=== PATIENT | male | born 1945 | race Caucasian/White ===

== ENCOUNTER 2017-09-24 10:54 | Day surgery (SDC) | payer MEDICARE, BC ==
[~2017-09-24] VITALS: Ht 170.2 cm; Wt 89.0 kg
[~2017-09-24 10:54] MED LIST: ALBU90OI INH; ALBU90OI6 INH; ALLO100; ALLO100 PO; ATOR20 PO; Balsalazide Di750 MG PO; HYDRA25 PO; LISI20 PO; MICROZIDE12.5 MG PO; Omeprazole20 M1 PO; Prednisone20 MG PO; QVAR7.3 G1 IH; WARF5 PO
[2017-09-24] MEDS ORDERED: Hydrochloroth12.5 MG (11:47)
[2017-09-24] MEDS ORDERED: METO100ER (11:48)
[2017-09-24] MEDS ORDERED: NEBI10 PO (11:48)
[2017-09-24] MEDS ORDERED: SPIR25 (11:48)
[2018-05-04] MEDS ORDERED: ELIQUIS5 MG PO (08:39)
[2018-07-19] MEDS ORDERED: Prednisone20 MG PO (10:20)
[2018-07-19] MEDS ORDERED: COMBIVENT RESPIM4 GM INH (10:20)
== END 2017-09-24 22:58 | disposition home or self-care (01) ==
LOC: MHTC 10:54
PROC: 5A2204Z Restoration of Cardiac Rhythm, Single (ICD-10-PCS; principal; 2017-09-24)
DX: I48.1 Persistent atrial fibrillation (principal); I10 Essential (primary) hypertension; E78.5 Hyperlipidemia, unspecified; J45.909 Unspecified asthma, uncomplicated; Z79.01 Long term (current) use of anticoagulants; Z79.899 Other long term (current) drug therapy; Z87.891 Personal history of nicotine dependence
CPT/HCPCS: 92960; 93005; 93010; 93312; 93325; J7120

== ENCOUNTER → 2018-09-10 | Outpatient (CLI) | payer MEDICARE, BC ==
[~2018-09-10] MED LIST changes: +COMBIVENT RESPIM4 GM INH; +ELIQUIS5 MG PO; +Hydrochloroth12.5 MG; +METO100ER; +NEBI10 PO; +SPIR25
== END | disposition home or self-care (01) ==
LOC: LAB SHORT 08:52 → LAB 08:52
DX: K92.1 Melena (principal); D64.9 Anemia, unspecified
CPT/HCPCS: 83993

== ENCOUNTER 2019-07-16 12:03 | Inpatient (IN) | payer MEDICARE, BC ==
[~2019-07-16] VITALS: Ht 170.2 cm; Wt 89.9 kg
[2019-07-16 13:07] LABS: BASOPHILS ABSOLUTE AUTO 0.03 K/mm3 (0.00-0.23); BASOPHILS PERCENT AUTO 0 % (0-2); EOSINOPHILS ABSOLUTE AUTO 0.09 K/mm3 (0.00-0.68); EOSINOPHILS PERCENT AUTO 1 % (0-6); Hematocrit 38.3 % (37.0-53.0); Hemoglobin 12.2 g/dL (13.5-17.5); IMMATURE GRAN ABSOLUTE AUTO 0.01 K/mm3 (0.00-0.10); IMMATURE GRAN PERCENT AUTO 0 % (0-1); LYMPHOCYTES ABSOLUTE AUTO 1.05 K/mm3 (0.84-5.20); LYMPHOCYTES PERCENT AUTO 14 % (21-46); MONOCYTES ABSOLUTE AUTO 0.97 K/mm3 (0.16-1.47); MONOCYTES PERCENT AUTO 13 % (4-13); Mean Corpuscular HGB 31.4 pg (26.0-34.0); Mean Corpuscular HGB Conc 31.9 g/dL (31.5-36.5); Mean Corpuscular Volume 99 fL (80-100); Mean Platelet Volume 10.8 fL (9.1-12.4); NEUTROPHILS ABSOLUTE AUTO 5.28 K/mm3 (1.96-9.15); NEUTROPHILS PERCENT AUTO 71 % (41-73); Platelet Count 246 K/mm3 (150-400); RDW Coefficient Variation 13.2 % (11.7-14.2); RDW Standard Deviation 46.7 fL (35.1-46.3); Red Blood Cell Count 3.89 M/mm3 (4.30-5.90); White Blood Cell Count 7.43 K/mm3 (4.00-11.30)
[2019-07-16 13:19] LABS: Alanine Aminotransfer (ALT/SGP 156 U/L (12-78); Albumin, Blood 3.6 g/dL (3.4-5.0); Albumin/Globulin Ratio 1.1 (0.8-1.8); Alk Phos 308 U/L (50-136); Anion Gap 7 mmol/L (6-16); Aspartate Aminotrans (AST/SGOT 172 U/L (12-37); Bilirubin, Total 1.1 mg/dL (0.1-1.0); Blood Urea Nitrogen 7 mg/dL (8-24); Bun/Creatinine Ratio 9.3 (12.0-20.0); CO2, Blood 27 mmol/L (21-32); Calcium, Blood 9.1 mg/dL (8.5-10.1); Chloride, Blood 103 mmol/L (98-108); Creatinine, Blood 0.75 mg/dL (0.60-1.20); Globulin, Blood 3.2 g/dL (2.2-4.0); Glomerular Filtration Rate >60 (60-); Glucose, Blood 81 mg/dL (70-99); Potassium, Blood 3.6 mmol/L (3.5-5.5); Sodium, Blood 137 mmol/L (136-145); Total Protein, Blood 6.8 g/dL (6.4-8.2); Troponin I <0.015 ng/mL (0.000-0.040)
[2019-07-16] MEDS ORDERED: ELIQUIS5 MG PO (14:33)
[2019-07-16] MEDS ORDERED: Ropinirole HCl1 MG PO (14:34)
[2019-07-16] MEDS ORDERED: COMBIVENT RESPIM4 GM INH (14:34)
[2019-07-16] MEDS ORDERED: COLAZAL PO (14:36)
[2019-07-16] MEDS ORDERED: MICROZIDE12.5 M1 PO (14:37)
[2019-07-16] MEDS ORDERED: BUDE6HFA INH (14:37)
[2019-07-16] MEDS ORDERED: MONT10T PO (14:37)
[2019-07-16] MEDS ORDERED: OMEPRAZOLE20 MG PO (14:45)
[2019-07-16] MEDS ORDERED: B Complex-Foli1 EACH PO (14:45)
[2019-07-16] MEDS ORDERED: ABAT250V (16:43)
[2019-07-16] MEDS ORDERED: POTA10T PO (16:43)
--- NOTE | 2019-07-16 17:31 | NUR ---
PT AOX4 AND COOPERATIVE OF CARE. PT IS INDEPENDENT IN ROOM. PT DENIES ANY CHEST PAIN AT THIS TIME. CALL LIGHT WITHIN REACH. WILL CONTINUE TO MONITOR.
[2019-07-17 00:45] LABS: BASOPHILS ABSOLUTE AUTO 0.04 K/mm3 (0.00-0.23); BASOPHILS PERCENT AUTO 1 % (0-2); EOSINOPHILS ABSOLUTE AUTO 0.14 K/mm3 (0.00-0.68); EOSINOPHILS PERCENT AUTO 2 % (0-6); Hematocrit 36.7 % (37.0-53.0); Hemoglobin 11.6 g/dL (13.5-17.5); IMMATURE GRAN ABSOLUTE AUTO 0.01 K/mm3 (0.00-0.10); IMMATURE GRAN PERCENT AUTO 0 % (0-1); LYMPHOCYTES PERCENT AUTO 19 % (21-46); MONOCYTES ABSOLUTE AUTO 0.82 K/mm3 (0.16-1.47); MONOCYTES PERCENT AUTO 11 % (4-13); Mean Corpuscular HGB 31.5 pg (26.0-34.0); Mean Corpuscular HGB Conc 31.6 g/dL (31.5-36.5); Mean Corpuscular Volume 100 fL (80-100); Mean Platelet Volume 10.5 fL (9.1-12.4); NEUTROPHILS ABSOLUTE AUTO 5.15 K/mm3 (1.96-9.15); NEUTROPHILS PERCENT AUTO 68 % (41-73); Platelet Count 233 K/mm3 (150-400); RDW Coefficient Variation 13.2 % (11.7-14.2); RDW Standard Deviation 48.8 fL (35.1-46.3); Red Blood Cell Count 3.68 M/mm3 (4.30-5.90); White Blood Cell Count 7.56 K/mm3 (4.00-11.30)
[2019-07-17 01:00] LABS: International Normalized Ratio 1.08; Prothrombin Time Results 11.4 Sec (9.7-11.5)
[2019-07-17 01:05] LABS: Alanine Aminotransfer (ALT/SGP 116 U/L (12-78); Albumin, Blood 3.2 g/dL (3.4-5.0); Alk Phos 261 U/L (50-136); Anion Gap 6 mmol/L (6-16); Aspartate Aminotrans (AST/SGOT 98 U/L (12-37); Blood Urea Nitrogen 10 mg/dL (8-24); Bun/Creatinine Ratio 12.1 (12.0-20.0); CO2, Blood 28 mmol/L (21-32); Calcium, Blood 8.8 mg/dL (8.5-10.1); Chloride, Blood 104 mmol/L (98-108); Creatinine, Blood 0.83 mg/dL (0.60-1.20); Globulin, Blood 3.1 g/dL (2.2-4.0); Glomerular Filtration Rate >60 (60-); Glucose, Blood 99 mg/dL (70-99); Potassium, Blood 3.6 mmol/L (3.5-5.5); Sodium, Blood 138 mmol/L (136-145); Total Protein, Blood 6.3 g/dL (6.4-8.2); Troponin I <0.015 ng/mL (0.000-0.040)
--- NOTE | 2019-07-17 05:25 | NUR ---
SHIFT SUMMARY: 73 Y/O MALE RESTED COMFORTABLY ALL SHIFT, DENIES CHEST PAIN, SOB OR NAUSEA, NPO AFTER MIDNIGHT FOR POSSIBLE SURGICAL PROCEDURE TODAY, HAPPY AND COOPERATIVE, ALERT AND ORIENTED X4, TELEMETRY REFLECTS NSR WITH HEART RATE 64 PER KENNY, RAILROAD BRAKE OPERATOR, BED LOW POSITION, CALL LIGHT AT SIDE.
--- NOTE | 2019-07-17 07:07 | NUR ---
07/16/19 2300 PTS WALLET, RING AND CAR KEYS LOCKED UP BY HOSPITAL SECURITY AND RECEIPT PLACED ON PATIENT'S CHART.
--- NOTE | 2019-07-17 17:40 | NUR ---
SHIFT SUMMARY- PT IS A/O, COOPERATIVE, AND PLESANT. PT'S BLOOD PRESSURE WAS ELEVATED THIS MORNING AND WAS MEDICATED PER MAR. PT TO BE PLACED ON NPO STATUS AFTER MIDNIGHT TO BE REEVALUATED BY SURGEON IN AM. PT WALKING FREQUENTLY THIS SHIFT. PT VISITED AND PICKED UP PERSONAL BELONGINGS THAT WERE IN THE SAFE IN THE SECURITY OFFICE. PT EATING AND DRINKING WELL. DENIES CHEST PAIN.
--- NOTE | 2019-07-18 01:08 | NUR ---
07/17/19 193 RESTING COMFORTABLY IN BED, DENIES PAIN OR NAUSEA. 07/18/19 0100 NO CHANGE IN ASSESSMENT, NPO FOR POSSIBLE SURGICAL INTERVENTION IN AM.
--- NOTE | 2019-07-18 04:36 | NUR ---
SHIFT SUMMARY: 73 Y/O MALE RESTED COMFORTABLY ALL SHIFT, NPO AFTER MIDNIGHT FOR POSSIBLE SURGICAL INTERVENTION TODAY, TELEMETRY REFLECTS NSR WITH HEART RATE 64, DENIES CHEST PAIN, NAUSEA OR DYSPNEA, ALERT AND ORIENTED X 4, HAPPY AND COPERATIVE, BED LOW POSITION WITH CALL LIGHT AT SIDE.
[2019-07-18 08:10] LABS: Alanine Aminotransfer (ALT/SGP 107 U/L (12-78); Albumin, Blood 3.4 g/dL (3.4-5.0); Albumin/Globulin Ratio 1.1 (0.8-1.8); Alk Phos 306 U/L (50-136); Anion Gap 6 mmol/L (6-16); Aspartate Aminotrans (AST/SGOT 84 U/L (12-37); Bilirubin, Total 0.8 mg/dL (0.1-1.0); Blood Urea Nitrogen 12 mg/dL (8-24); CO2, Blood 27 mmol/L (21-32); Calcium, Blood 9.2 mg/dL (8.5-10.1); Chloride, Blood 104 mmol/L (98-108); Globulin, Blood 3.2 g/dL (2.2-4.0); Glomerular Filtration Rate >60 (60-); Glucose, Blood 100 mg/dL (70-99); Potassium, Blood 3.9 mmol/L (3.5-5.5); Sodium, Blood 137 mmol/L (136-145); Total Protein, Blood 6.6 g/dL (6.4-8.2)
--- NOTE | 2019-07-18 09:56 | NUR ---
HE CALLED FOR HIS NURSE BECAUSE HE DIDN'T FEEL RIGHT. I FOUND HIM SITTING IN A CHAIR BESIDE THE BED. HE SAID HE WAS WALKING AROUND IN THE ROOM BUT BECAME DIZZY, DIDN'T FEEL RIGHT AND SAT DOWN. I OBSERVED LARGE JERKY MOVEMENTS. IT INVOLVED MOSTLY HIS R SIDE AND ARM. HE SAYS HE HAS HAD THE JERKY MOVEMENTS FOR A FEW MONTHS AND HAS A REFERRAL TO A NEUROLOGIST BUT HASN'T SEEN ONE YET. I HELPED HIM TRANSFER EASILY BACK TO THE BED WITH A WALKER IN FRONT OF HIM AND TOOK 2 SETS OF VS. 1ST SBP 202. 2ND SBP 180. THE JERKY MOVEMENTS CONTINUE. THEY ALSO INVOLVE THE LEGS AND HEAD. HE SAYS SOMETIMES THEY LAST AN HOUR. HE IS FULLY ALERT AND CONVERSATIONAL T/O THIS TIME.
--- NOTE | 2019-07-18 16:32 | NUR ---
SHIFT SUMMARY- PT A/O PLESANT AND COOPERATIVE. PT BLOOD PRESSURE HAS BEEN ELEVATED DURING THIS SHIFT, MEDICATED PER MAR WITH DECREASE IN BLOOD PRESSURE, WHICH DID NOT MAINTAIN. SPOKE WITH DR. MCADAMS SEVERAL TIMES THROGHOUT THIS SHIFT AND SHE ADJUSTED MEDICATIONS. PT HAD MUSCLE JERKING EPISODES TWICE DRUING THIS SHIFT. DR. MCADAMS WAS CONTACTED AND ABLE TO OBSERVE THE SECOND EPISODE. PT DENIES PAIN THIS SHIFT. PT TAKEN OFF NPO STATUS AFTER CONSULT WITH SURGEON.
--- NOTE | 2019-07-19 04:09 | NUR ---
SHIFT SUMMARY AOX4. AT 0230 BP ELEVATED TO 189/86, PT REPORTED MILD HEADACHE @THIS TIME. GAVE 0.1 MG CATAPRESS PER ORDERS & BP RECHECKED ROUGHLY 30MIN LATER, BP DROPPED TO 148/70. TELE IN PLACE, RUNNING NSR W/PAC'S @60. PT DENIES N/V, CHILLS, PALPATIONS, DYSPNEA OR PAIN. DOES HAVE CONSTANT JERKY, TWITCHING MUSCLE SPASMS INVOLVING THE RIGHT SIDE OF BODY. STATES HE HAS BEEN DEALING WITH THESE SPASMS FOR THE PAST FEW MONTHS. CALL LIGHT IN REACH.
[2019-07-19 04:46] LABS: BASOPHILS ABSOLUTE AUTO 0.04 K/mm3 (0.00-0.23); BASOPHILS PERCENT AUTO 1 % (0-2); EOSINOPHILS ABSOLUTE AUTO 0.19 K/mm3 (0.00-0.68); EOSINOPHILS PERCENT AUTO 3 % (0-6); Hematocrit 36.4 % (37.0-53.0); Hemoglobin 11.7 g/dL (13.5-17.5); IMMATURE GRAN ABSOLUTE AUTO 0.02 K/mm3 (0.00-0.10); IMMATURE GRAN PERCENT AUTO 0 % (0-1); LYMPHOCYTES ABSOLUTE AUTO 1.08 K/mm3 (0.84-5.20); LYMPHOCYTES PERCENT AUTO 18 % (21-46); MONOCYTES ABSOLUTE AUTO 0.72 K/mm3 (0.16-1.47); MONOCYTES PERCENT AUTO 12 % (4-13); Mean Corpuscular HGB 31.3 pg (26.0-34.0); Mean Corpuscular HGB Conc 32.1 g/dL (31.5-36.5); Mean Platelet Volume 10.9 fL (9.1-12.4); NEUTROPHILS ABSOLUTE AUTO 3.86 K/mm3 (1.96-9.15); NEUTROPHILS PERCENT AUTO 65 % (41-73); Platelet Count 250 K/mm3 (150-400); RDW Coefficient Variation 12.8 % (11.7-14.2); RDW Standard Deviation 45.8 fL (35.1-46.3); Red Blood Cell Count 3.74 M/mm3 (4.30-5.90); White Blood Cell Count 5.91 K/mm3 (4.00-11.30)
[2019-07-19 04:47] LABS: Mean Corpuscular Volume 97 fL (80-100)
[2019-07-19 05:11] LABS: Alanine Aminotransfer (ALT/SGP 81 U/L (12-78); Albumin, Blood 3.3 g/dL (3.4-5.0); Alk Phos 264 U/L (50-136); Anion Gap 9 mmol/L (6-16); Aspartate Aminotrans (AST/SGOT 55 U/L (12-37); Bilirubin, Total 0.7 mg/dL (0.1-1.0); Blood Urea Nitrogen 13 mg/dL (8-24); Bun/Creatinine Ratio 17.2 (12.0-20.0); CO2, Blood 26 mmol/L (21-32); Calcium, Blood 9.2 mg/dL (8.5-10.1); Chloride, Blood 102 mmol/L (98-108); Creatinine, Blood 0.75 mg/dL (0.60-1.20); Globulin, Blood 3.2 g/dL (2.2-4.0); Glomerular Filtration Rate >60 (60-); Glucose, Blood 94 mg/dL (70-99); Potassium, Blood 3.6 mmol/L (3.5-5.5); Sodium, Blood 137 mmol/L (136-145); Total Protein, Blood 6.5 g/dL (6.4-8.2)
--- NOTE | 2019-07-19 17:20 | NUR ---
SHIFT SUMMARY- PT CHANGED INTO A-FIB THIS AFTERNOON. BP'S HAVE BEEN UP AND DOWN, BP SEEMS TO RESPOND WELL TO THE PRN PO CLONIDINE. COREG WAS HELD THIS MORNING PER DR ROYAL D/T PT NSR BRADYCARDIA AT 56. PT HAD A MINOR C/O PAIN IN THE LEFT SHOULDER MEDICATED WITH TYLENOL AND SEEMED TO IMPROVE. PT STATED THAT HE FELL AT HOME AMD TRIED TO CATCH HIMSELF WITH THE LEFT ARM, HE BELIEVES THIS IS THE CAUSE OF HIS LEFT SHOULDER PAIN. LIDODERM PATCH ORDERED FR TOMORROW MORNING. PT CURRENTLY SITTING UP IN BED, CALL LIGHT IN REACH, PT PLANS TO HAVE A SHOWER THIS EVENING, AFTER DINNER. PT DECLINED EARLIER IN THE DAY BECAUSE THERE WAS A CHANCE HE COULD GO HOME. PT BP IS NOT YET STABLE. LAST SBP WAS 150'S.
--- NOTE | 2019-07-19 19:47 | NUR ---
PT REPORTS FEELING COOL & CLAMMY. UPON ASSESSMENT PT IS SLIGHLTY COOL & DIAPHORETIC ON FOREHEAD. VSS. TELE IS RUNNING AFIB W/HR IN 80'S. REPORTS "HEAVY" FEELING WHEN HE TAKES A BREATH IN BUT DOESN'T FEEL SOB. DENIES NAUSEA. REPORTS MILD PRESSURE ON L UPPER CHEST & A SLIGHT HEADACHE. NOTICED MUSCLE TWITCHING/SPASMS HAD STARTED TO OCCUR AGAIN. PT STATES HE HAS BEEN GETTING THIS COOL/CLAMMY FEELING FOR THE PAST FEW WEEKS, BUT IT "WASN'T BAD IT HAS BEEN." AFTER VS ASSESSED PT REPORTED HE NO LONGER FELT COOL/CLAMMY OR HAD ANY CHEST DISCOMFORT. I WILL CONTINUE TO MONITOR CLOSELY.
--- NOTE | 2019-07-19 20:04 | NUR ---
PT REPORTS FEELING CLAMMY/DIAPHORETIC AGAIN & STATES DULL L UPPER CHEST PRESSURE HAS GONE DOWN TO 1/10 AFTER RECIEVING BREATHING TX. WHEREAS IT WAS A 2-3/10 BEFORE. VSS. PT RUNNING A. FIB W/HR IN THE 60'S. AFTER ASSESSING PT HE REPORTS CLAMMINESS GOING AWAY. I INSTRUCTED PT TO USE CALL LIGHT IF CHEST PAIN/DISCOMFORT COMES BACK. CHARGE NURSE NIHARIKA Longoria NOTIFIED.
--- NOTE | 2019-07-20 07:17 | NUR ---
SHIFT SUMMARY NO ACUTE CHANGES REST OF SHIFT. VSS. AOX4. DENIES FURTHER PAIN, CLAMMINESS OR BEING DIAPHORETIC. DENIES N/V/D, CHILLS, OR DYSPNEA. STILL HAS OCCASIONAL INVOLUNTARY JERKY MOVEMENT W/RIGHT EXTREMITIES. TELE IN PLACE RUNNING A FIB W/HR 77. CALL LIGHT IN REACH.
[2019-07-20 07:30] LABS: Alanine Aminotransfer (ALT/SGP 73 U/L (12-78); Albumin, Blood 3.4 g/dL (3.4-5.0); Alk Phos 233 U/L (50-136); Anion Gap 8 mmol/L (6-16); Aspartate Aminotrans (AST/SGOT 48 U/L (12-37); Bilirubin, Total 0.8 mg/dL (0.1-1.0); Blood Urea Nitrogen 15 mg/dL (8-24); CO2, Blood 28 mmol/L (21-32); Calcium, Blood 9.3 mg/dL (8.5-10.1); Chloride, Blood 100 mmol/L (98-108); Creatinine, Blood 0.79 mg/dL (0.60-1.20); Globulin, Blood 3.3 g/dL (2.2-4.0); Glomerular Filtration Rate >60 (60-); Glucose, Blood 94 mg/dL (70-99); Potassium, Blood 3.8 mmol/L (3.5-5.5); Sodium, Blood 136 mmol/L (136-145); Total Protein, Blood 6.7 g/dL (6.4-8.2)
[2019-07-20] MEDS ORDERED: AMLO10 PO (08:33)
[2019-07-20] MEDS ORDERED: CLON.1 PO (08:35)
[2019-07-20] MEDS ORDERED: HYDCHL25 PO (08:36)
--- NOTE | 2019-07-20 09:22 | NUR ---
SUMMARY/DISCHARGE PT BEING DISCHARGED TO HOME, PT ALREADY HAS A DOCTOR APPOINTMENT TOMORROW, PT VERBALIZED UNDERSTANDING OF DISCHARGE INSTRUCTIONS, PT REPORTS HIS JUST BOUGHT A BLOOD PRESSURE CUFF, PT WAITING FOR HIS RIDE
== END 2019-07-20 09:44 | disposition home or self-care (01) | DRG 305 ==
LOC: ER 12:03 → MEDS 12:04 → ER 12:04 → MEDS 12:04
PROVIDERS: Nurse Practitioner Acute Care; Physician Assistant; Surgery; ADMIT Internal Medicine
DX: I16.0 Hypertensive urgency (principal); K50.90 Crohn's disease, unspecified, without complications; E78.5 Hyperlipidemia, unspecified; M10.9 Gout, unspecified; J45.20 Mild intermittent asthma, uncomplicated; I10 Essential (primary) hypertension; I35.0 Nonrheumatic aortic (valve) stenosis; J44.9 Chronic obstructive pulmonary disease, unspecified; K80.20 Calculus of gallbladder without cholecystitis without obstruction; G25.3 Myoclonus; I48.0 Paroxysmal atrial fibrillation; K44.9 Diaphragmatic hernia without obstruction or gangrene
CPT/HCPCS: 36415; 71046; 76705; 80053; 83690; 83735; 83880; 84484; 85025; 85610; 85651; 86140; 87040; 93005; 93010; 93306; 94640; 94760; 96374; 96375; 99285-25; A9270; G0378; J0360

== ENCOUNTER 2019-08-28 21:32 | Inpatient (IN) | payer MEDICARE, BC ==
[~2019-08-28] VITALS: Ht 170.2 cm; Wt 92.9 kg
[~2019-08-28 21:32] MED LIST changes: +ABAT250V; +AMLO10 PO; +B Complex-Foli1 EACH PO; +BUDE6HFA INH; +CLON.1 PO; +COLAZAL PO; +HYDCHL25 PO; +MICROZIDE12.5 M1 PO; +MONT10T PO; +OMEPRAZOLE20 MG PO; +POTA10T PO; +Ropinirole HCl1 MG PO
[2019-08-28 22:07] LABS: BASOPHILS ABSOLUTE AUTO 0.02 K/mm3 (0.00-0.23); BASOPHILS PERCENT AUTO 0 % (0-2); EOSINOPHILS PERCENT AUTO 0 % (0-6); Hematocrit 38.7 % (37.0-53.0); Hemoglobin 12.6 g/dL (13.5-17.5); IMMATURE GRAN ABSOLUTE AUTO 0.05 K/mm3 (0.00-0.10); IMMATURE GRAN PERCENT AUTO 1 % (0-1); LYMPHOCYTES ABSOLUTE AUTO 0.56 K/mm3 (0.84-5.20); LYMPHOCYTES PERCENT AUTO 7 % (21-46); MONOCYTES ABSOLUTE AUTO 0.29 K/mm3 (0.16-1.47); MONOCYTES PERCENT AUTO 4 % (4-13); Mean Corpuscular HGB Conc 32.6 g/dL (31.5-36.5); Mean Corpuscular Volume 92 fL (80-100); Mean Platelet Volume 10.3 fL (9.1-12.4); NEUTROPHILS ABSOLUTE AUTO 6.66 K/mm3 (1.96-9.15); NEUTROPHILS PERCENT AUTO 88 % (41-73); Platelet Count 271 K/mm3 (150-400); RDW Coefficient Variation 13.2 % (11.7-14.2); RDW Standard Deviation 44.1 fL (35.1-46.3); White Blood Cell Count 7.58 K/mm3 (4.00-11.30)
[2019-08-28] MEDS ORDERED: PRED20 (22:15)
[2019-08-28 22:24] LABS: Alanine Aminotransfer (ALT/SGP 71 U/L (12-78); Albumin, Blood 3.7 g/dL (3.4-5.0); Albumin/Globulin Ratio 1.1 (0.8-1.8); Alk Phos 122 U/L (50-136); Anion Gap 12 mmol/L (6-16); Aspartate Aminotrans (AST/SGOT 78 U/L (12-37); Bilirubin, Total 0.5 mg/dL (0.1-1.0); Blood Urea Nitrogen 13 mg/dL (8-24); Bun/Creatinine Ratio 18.7 (12.0-20.0); CO2, Blood 20 mmol/L (21-32); Calcium, Blood 8.4 mg/dL (8.5-10.1); Chloride, Blood 94 mmol/L (98-108); Creatinine, Blood 0.69 mg/dL (0.60-1.20); Globulin, Blood 3.5 g/dL (2.2-4.0); Glomerular Filtration Rate >60 (60-); Glucose, Blood 150 mg/dL (70-99); Sodium, Blood 126 mmol/L (136-145); Total Protein, Blood 7.2 g/dL (6.4-8.2); Troponin I <0.015 ng/mL (0.000-0.040)
--- NOTE | 2019-08-29 04:18 | NUR ---
73 YR OLD MALE ADMITTED TO FLOOR FROM THE ED WITH DX OF ASTHMA EXACERBATION. RESP PANEL OBTAINED AND SENT TO LAB. NOTE WHEEZING OF BILAT LUNGS. HAS HAD RESP TREATMENTS - SEE MAR AND RT DOCUMENTATION FOR DETAILS. CALL LIGHT IN REACH. WILL CONTINUE TO MONITOR.
[2019-08-29 04:56] LABS: Anion Gap 16 mmol/L (6-16); Blood Urea Nitrogen 15 mg/dL (8-24); Bun/Creatinine Ratio 22.7 (12.0-20.0); CO2, Blood 18 mmol/L (21-32); Calcium, Blood 8.4 mg/dL (8.5-10.1); Chloride, Blood 93 mmol/L (98-108); Creatinine, Blood 0.66 mg/dL (0.60-1.20); Glomerular Filtration Rate >60 (60-); Glucose, Blood 181 mg/dL (70-99); Potassium, Blood 3.4 mmol/L (3.5-5.5); Sodium, Blood 127 mmol/L (136-145)
[2019-08-29 05:53] LABS: Adenovirus Not Detected (NOT DETECT); Coronavirus 229E Not Detected (NOT DETECT); Coronavirus HKU1 Not Detected (NOT DETECT); Coronavirus NL63 Not Detected (NOT DETECT); Coronavirus OC43 Not Detected (NOT DETECT); Human Metapneumovirus Not Detected (NOT DETECT); Human Rhinovirus/Enterovirus Not Detected (NOT DETECT); Influenza A Not Detected (NOT DETECT); Influenza A/2009-H1 Not Detected (NOT DETECT); Influenza A/H1 Not Detected (NOT DETECT); Influenza A/H3 Not Detected (NOT DETECT); Influenza B Detected (NOT DETECT)
[2019-08-29 05:54] LABS: Bordetella pertussis Not Detected (NOT DETECT); Chlamydophila pneumoniae Not Detected (NOT DETECT); Mycoplasma pneumoniae Not Detected (NOT DETECT); Parainfluenza Virus 1 Not Detected (NOT DETECT); Parainfluenza Virus 2 Not Detected (NOT DETECT); Parainfluenza Virus 3 Not Detected (NOT DETECT); Parainfluenza Virus 4 Not Detected (NOT DETECT); Respiratory Syncytial Virus Not Detected (NOT DETECT)
--- NOTE | 2019-08-29 17:08 | NUR ---
SHIFT SUMMARY NO ACUTE CHANGES. PATIENT DENIES PAIN, NAUSEA, AND SHORTNESS OF BREATH. PATIENT UP SBA TO BATHROOM. PATIETN RECEIVING BREATHING TREATMENTS. PATIENT NAPPING OR UP IN CHAIR DURING SHIFT. CALL LIGHT IN REACH.
--- NOTE | 2019-08-30 05:11 | NUR ---
SHIFT SUMMARY: A/OX3. CONT WITH MOIST COUGH. COUGH IS GAURDED- PT STATES HE IS SUPPRESSING COUGH D/T PAIN WITH COUGH. ENCOURAGED TCDB USING PILLOW TO BRACE CHEST. INSP/EXP WHEEZING AUSCULTATED THROUGHOUT LUNGS. 02 SATS 92-94% ON RA. SOB WITH EXERTION.
[2019-08-30 05:45] LABS: Albumin, Blood 3.3 g/dL (3.4-5.0); Anion Gap 6 mmol/L (6-16); Blood Urea Nitrogen 15 mg/dL (8-24); Bun/Creatinine Ratio 23.5 (12.0-20.0); CO2, Blood 26 mmol/L (21-32); Calcium, Blood 8.6 mg/dL (8.5-10.1); Chloride, Blood 101 mmol/L (98-108); Creatinine, Blood 0.64 mg/dL (0.60-1.20); Glomerular Filtration Rate >60 (60-); Glucose, Blood 155 mg/dL (70-99); Phosphorus, Blood 2.3 mg/dL (2.5-4.9); Potassium, Blood 4.4 mmol/L (3.5-5.5); Sodium, Blood 133 mmol/L (136-145)
--- NOTE | 2019-08-30 17:37 | NUR ---
SHIFT SUMMARY DERRELL HAS DENIED PAIN, TELE DC'D, INDEPENDENT IN ROOM. KAYCEE HOSE ON FOR FEET SWELLING. TOOK PILLS ONE AT A TIME. VISITED. CALL LIGHT IN REACH, [facility]
--- NOTE | 2019-08-31 04:20 | NUR ---
SHIFT SUMMARY PATIENT ALERT AND ORIENTED ALL NIGHT. HE HAD NO COMPLAINT OF PAIN AND HAD MINIMAL NEEDS THIS SHIFT. HE REQUESTED ONE PRN NEBULIZER TREATMENT BECAUSE OF SHORTNESS OF BREATH WHICH THE RT ADMINISTERED AND IT WAS EFFECTIVE. PATIENT ABLE TO SLEEP MOST OF THE NIGHT. IV PATENT AND FLUSHED. BED IN LOWEST POSITION WITH WHEELS LOCKED. CALL LIGHT AND BELONGINGS WITHIN REACH. REPORT GIVEN TO ONCOMING RN.
--- NOTE | 2019-08-31 07:52 | NUR ---
THIS RN CAME ONTO SHIFT PATIENT HAD NURSES AT BEDSIDE. PATIENT HAD A FEVER. OFF GOING SHIFT HAD ICE IN ARMPITS, GIVEN TYLENOL. RT NOTIFIED. PLACED ON BIPAP. THIS RN CALLED DR. EMERY. SHE REQUESTED TRANSFER TO PCU. REPORT GIVEN TO SHERYL CROWLEY. THIS RN AND LÁZARO TO TRANSFER PATIENT TO ICU 16 WITH PCU STATUS.
--- NOTE | 2019-08-31 08:30 | NUR ---
TRANSFER TO ICU: REPORT RECEIVED FROM ANTOINETTE Tran RN. PT ARRIVED TO ICU-16 AT 0810. ON ARRIVAL, PT IS A&O, AMBULATES TO TX TO NEW BED. HE STS FEELING SOB AT THIS TIME BUT O2 SATS REMAIN STABLE ON 3L NC. LS ARE COARSE T/O & PT HAS WET COUGH BUT IS UNABLE TO EXPECTORATE. MONITOR SHOWS AFIB W/ HR 60-90s. BP STABLE. PT HAS NO GI/ COMPLAINTS, TOLERATES PO INTAKE WELL. DR EMERY NOTIFIED OF PT's TRANSFER TIME BY ANTOINETTE Tran RN. WILL CONTINUE TO MONTITOR & UPDATE NEEDED.
[2019-08-31 10:27] LABS: BASOPHILS ABSOLUTE AUTO 0.02 K/mm3 (0.00-0.23); BASOPHILS PERCENT AUTO 0 % (0-2); EOSINOPHILS PERCENT AUTO 0 % (0-6); Hematocrit 37.8 % (37.0-53.0); Hemoglobin 12.4 g/dL (13.5-17.5); IMMATURE GRAN PERCENT AUTO 1 % (0-1); LYMPHOCYTES ABSOLUTE AUTO 0.33 K/mm3 (0.84-5.20); LYMPHOCYTES PERCENT AUTO 1 % (21-46); MONOCYTES ABSOLUTE AUTO 1.52 K/mm3 (0.16-1.47); MONOCYTES PERCENT AUTO 6 % (4-13); Mean Corpuscular HGB 29.8 pg (26.0-34.0); Mean Corpuscular HGB Conc 32.8 g/dL (31.5-36.5); Mean Corpuscular Volume 91 fL (80-100); Mean Platelet Volume 10.7 fL (9.1-12.4); NEUTROPHILS ABSOLUTE AUTO 23.24 K/mm3 (1.96-9.15); NEUTROPHILS PERCENT AUTO 91 % (41-73); Platelet Count 316 K/mm3 (150-400); RDW Coefficient Variation 13.2 % (11.7-14.2); RDW Standard Deviation 43.7 fL (35.1-46.3); Red Blood Cell Count 4.16 M/mm3 (4.30-5.90); White Blood Cell Count 25.41 K/mm3 (4.00-11.30)
--- NOTE | 2019-08-31 10:40 | NUR ---
DR EMERY: PROVIDER AT BEDSIDE TO EVAL PT. ORDERS FOR LABWORK & IMAGING HAVE BEEN PLACED. WILL CONTINUE TO MONITOR & UPDATE NEEDED.
[2019-08-31 10:43] LABS: Albumin, Blood 3.2 g/dL (3.4-5.0); Anion Gap 9 mmol/L (6-16); Blood Urea Nitrogen 16 mg/dL (8-24); Bun/Creatinine Ratio 22.8 (12.0-20.0); CO2, Blood 27 mmol/L (21-32); Calcium, Blood 8.5 mg/dL (8.5-10.1); Chloride, Blood 99 mmol/L (98-108); Glomerular Filtration Rate >60 (60-); Glucose, Blood 189 mg/dL (70-99); Phosphorus, Blood 2.3 mg/dL (2.5-4.9); Potassium, Blood 3.5 mmol/L (3.5-5.5); Sodium, Blood 135 mmol/L (136-145)
--- NOTE | 2019-08-31 14:48 | NUR ---
PROVIDER UPDATE: CALL TO DR EMERY TO DISCUSS ELEVATED BNP & NEGATIVE PRELIMINARY RESULTS FOR VENOUS DUPLEX SCAN. SHE STS TO CONTINUE ABX & BIPAP ORDERED.
--- NOTE | 2019-08-31 18:24 | NUR ---
SHIFT SUMMARY: NO ACUTE CHANGES SINCE ASSUMING CARE THIS AM. PT REMAINS A&O, PLEASANT & COOPERATIVE. HE IS SITTING UP IN CHAIR FOR PO INTAKE THIS EVENING & USING FLUTTER VALVE INSTRUCTED. LS REMAIN COARSE T/O BUT SLIGHTLY IMPROVED, PT IS USING 3L NC OR BIPAP 12/5 W/ 3L O2 BLEED-IN WHEN FEELING INCREASED WORK OF BREATHING. COUGH IS MOIST BUT NONPRODUCTIVE, ENCOURAGED TO DEEP BREATHE & COUGH. MONITOR SHOWS AFIB W/ HR 60-90s. BP STABLE. PT VOIDS W/O DIFFICULTY, HAS HAD NO BM SINCE ADMIT. PIV TO RFA INFILTRATED THIS AFTERNOON W/ LARGE AREA OF INFILTRATE NOTED, HOT COMPRESS APPLIED AT THAT TIME & AREA NOW SOFT TO PALPATION, ALTHOUGH REMAINS SWOLLEN. WILL CONTINUE TO MONITOR & REPORT OFF TO ONCOMING RN.
--- NOTE | 2019-08-31 20:00 | NUR ---
PT UP IN CHAIR DURING SHIFT CHANGE, ASSISTED BACK TO BED. CONT W EXERTIONAL SOB. SATS MID 90'S ON 3LNC. DENIES OTHER DISCOMFORT. PLANS TO WEAR BIPAP AFTER HS MEDS.
[2019-09-01 03:49] LABS: BASOPHILS ABSOLUTE AUTO 0.04 K/mm3 (0.00-0.23); BASOPHILS PERCENT AUTO 0 % (0-2); EOSINOPHILS ABSOLUTE AUTO 0.02 K/mm3 (0.00-0.68); EOSINOPHILS PERCENT AUTO 0 % (0-6); Hematocrit 37.8 % (37.0-53.0); Hemoglobin 12.3 g/dL (13.5-17.5); IMMATURE GRAN ABSOLUTE AUTO 0.18 K/mm3 (0.00-0.10); IMMATURE GRAN PERCENT AUTO 1 % (0-1); LYMPHOCYTES ABSOLUTE AUTO 0.64 K/mm3 (0.84-5.20); LYMPHOCYTES PERCENT AUTO 2 % (21-46); MONOCYTES ABSOLUTE AUTO 0.46 K/mm3 (0.16-1.47); MONOCYTES PERCENT AUTO 2 % (4-13); Mean Corpuscular HGB 29.6 pg (26.0-34.0); Mean Corpuscular HGB Conc 32.5 g/dL (31.5-36.5); Mean Corpuscular Volume 91 fL (80-100); Mean Platelet Volume 10.4 fL (9.1-12.4); NEUTROPHILS ABSOLUTE AUTO 25.54 K/mm3 (1.96-9.15); NEUTROPHILS PERCENT AUTO 95 % (41-73); Platelet Count 279 K/mm3 (150-400); RDW Coefficient Variation 13.1 % (11.7-14.2); RDW Standard Deviation 44.1 fL (35.1-46.3); Red Blood Cell Count 4.15 M/mm3 (4.30-5.90); White Blood Cell Count 26.88 K/mm3 (4.00-11.30)
[2019-09-01 04:08] LABS: Albumin, Blood 3.1 g/dL (3.4-5.0); Anion Gap 8 mmol/L (6-16); Blood Urea Nitrogen 15 mg/dL (8-24); Bun/Creatinine Ratio 22.8 (12.0-20.0); CO2, Blood 29 mmol/L (21-32); Calcium, Blood 8.8 mg/dL (8.5-10.1); Chloride, Blood 98 mmol/L (98-108); Creatinine, Blood 0.66 mg/dL (0.60-1.20); Glomerular Filtration Rate >60 (60-); Glucose, Blood 149 mg/dL (70-99); Phosphorus, Blood 3.3 mg/dL (2.5-4.9); Potassium, Blood 3.7 mmol/L (3.5-5.5); Sodium, Blood 135 mmol/L (136-145)
--- NOTE | 2019-09-01 06:00 | NUR ---
PT STATES HE SLEPT WELL. WORE BIPAP THROUGH THE NIGHT. UP TO TOILET TO VOID, PT ALSO HAD BM THIS AM. CONT TO BE SOB WHEN AMB IN ROOM, BACK ON BIPAP & SATS MID 90'S. CONT TO BE AFIB W RATE 70'S.
--- NOTE | 2019-09-01 08:30 | NUR ---
INITIAL ASSESSMENT PATIENT ALERT AND ORIENTED X 4, AFEBRILE. PATIENT DENIES PAIN OR DISCOMFORT. PATIENT HAS FINE MUSCLE TREMORS NOTED ON R SIDE. PATIENT STATES THAT HE HAS HAD THESE TREMORS FOR A FEW YEARS NOW. PATIENT WEAK, SBA. PATIENT SATTING 90% AND GREATER ON 2 L NC. LUNGS DIMINISHED THROUGHOUT, COARSE IN LOWER LOBES. PATIENT STATES HE HAS OCCASIONAL COUGH THAT IS PRODUCING SMALL AMOUNT OF THICK, WHITE/ BARTON SPUTUM. PATIENT IN A.FIB, HR 70S TO 80S. SBP 150S TO 170S. KAYCEE HOSE IN PLACE. ABDOMEN SOFT, NONDISTENDED, NONTENDER, WITH NORMOACTIVE BS. PATIETN HAD BM TODAY. TOLERATING CARDIAC DIET WELL. WNL. R FA REDDENED AND SWOLLEN FROM IV INFILTRATING ON ANOTHER SHIFT. PATIENT STATES THAT IT IS TENDER TO PALPATION BUT THAT IT IS LOOKING BETTER THAN IT DID. 2+ EDEMA NOTED TO BLES. IV FLUSHED AND SALINE LOCKED. BED LOW, CALL LIGHT IN REACH. WILL CONTINUE TO MONITOR PATIENT FREQUENTLY THROUGHOUT SHIFT.
--- NOTE | 2019-09-01 12:43 | NUR ---
RUPERT IN TO SEE PATIENT. INFORMED OF PATIENT'S INCREASING WBC COUNT. INFORMED THAT PATIENT'S BLOOD PRESSURE HAS BEEN ON THE HIGHER SIDE BUT HAS NOT NEEDED PRN HYDRALAZINE YET THIS SHIFT. INFORMED THAT PATIENT HAS 2+ PITTING EDEMA IN LOWER EXTREMITIES AND THAT LUNG SOUNDS ARE COARSE AND DIMINISHED. INFORMED THAT PATIENT SATTING 90% AND GREATER ON 1-2 L NC TODAY. WOULD LIKE TO KEEP PATIENT PCU STATUS AT THIS TIME. NO ORDERS RECEIVED.
--- NOTE | 2019-09-01 12:47 | NUR ---
PATIENT RESTING QUIETLY IN BED. PATIENT HAS NO COMPLAINTS OF PAIN OR DISCOMFORT. PATIENT AFEBRILE. VSS. PATIENT DECREASED TO 1 L NC AND REMAINS SATTING 90% AND GREATER. NO OTHER ACUTE CHANGES TO NOTE ON AT THIS TIME. WILL CONTINUE TO MONITOR.
--- NOTE | 2019-09-01 16:30 | NUR ---
SHIFT SUMMARY PATIENT REMAINED ALERT AND ORIENTED X 4, AFEBRILE. PATIENT DECREASED FROM 3 L NC AT BEGINNING OF SHIFT TO RA AT END OF SHIFT. PATIENT REMAINS SATTING 90% AND GREATER. LUNGS REMAINED DIM AND COARSE. PATIENT CONTINUED TO HAVE OCCASIONAL COUGH WITH SMALL AMOUNTS OF THICK, WHITE/ BARTON SPUTUM. PATIENT REMAINED IN A. FIB, HR 70S TO 90S. SBP 140S TO 170S. KAYCEE HOSE REMAINED ON. 2+ PITTING REMAINED IN BLES. GI REMAINED WNL. PATIENT HAD ADEQUATE APPETITE. PATIENT HAD SEVERAL FORMED BMS THIS SHIFT. WNL. NO CHANGE IN SKIN. PATIENT REMAINED REPOSITIONING SELF. SBA BECAUSE OF LINES AND CORDS. PT/OT ORDERED ON PATIENT. IVS SALINE LOCKED. PATIENT RECEIVED LEVAQUIN AND VANCO THIS SHIFT. PATIENT HAS NO COMPLAINTS AT THIS TIME. BED LOW, CALL LIGHT IN REACH. PATIENT WILL BE TRANSFERRING TO PCU, ROOM 4. REPORT HAS BEEN GIVEN TO ASSUMING NURSE, KIMBERLEE.
--- NOTE | 2019-09-01 16:45 | NUR ---
PATIENT SUCCESSFULLY TRANSFERRED TO PCU, ROOM 04. PATIENT STATED HE WOULD CALL AND INFORM HIS OF THE ROOM CHANGE.
--- NOTE | 2019-09-01 17:08 | NUR ---
SHIFT NOTE PT ARRIVES FROM ICU, DENIES CP OR SOB AT THIS TIME. LS ARE DIMENISHED IN ALL LOBES. NO COUGH NOTED. HTN NOTED BUT IS UNCHANGED FROM ICU BP. PT WAS MEDCIATED WITH COREG AND SOLUMEDROL PRIOR TO LEAVING ICU. 2+ BILAT PITTING EDEMA NOTED TO LEGS.
[2019-09-01 23:37] LABS: Vancomycin, Trough 10.2 ug/mL (5.0-10.0)
--- NOTE | 2019-09-02 00:36 | NUR ---
PT REQUEST FOR UDN. RR 22 BIOX 93% ON RA. AUDIBLE COARSE BREATH SOUNDS. ABLE TO COUGH WITHOUT PRODUTION OF SPUTUM. RT CALLED, UDN STARTED. PATIENT FEELS RELIEF OF SYMPTOMS. WILL CONTINUE TO MONITOR.
[2019-09-02 03:29] LABS: BASOPHILS ABSOLUTE AUTO 0.01 K/mm3 (0.00-0.23); BASOPHILS PERCENT AUTO 0 % (0-2); EOSINOPHILS ABSOLUTE AUTO 0.01 K/mm3 (0.00-0.68); EOSINOPHILS PERCENT AUTO 0 % (0-6); Hematocrit 37.6 % (37.0-53.0); Hemoglobin 12.3 g/dL (13.5-17.5); IMMATURE GRAN ABSOLUTE AUTO 0.19 K/mm3 (0.00-0.10); IMMATURE GRAN PERCENT AUTO 1 % (0-1); LYMPHOCYTES ABSOLUTE AUTO 0.77 K/mm3 (0.84-5.20); LYMPHOCYTES PERCENT AUTO 4 % (21-46); MONOCYTES ABSOLUTE AUTO 0.51 K/mm3 (0.16-1.47); MONOCYTES PERCENT AUTO 3 % (4-13); Mean Corpuscular HGB 29.7 pg (26.0-34.0); Mean Corpuscular HGB Conc 32.7 g/dL (31.5-36.5); Mean Corpuscular Volume 91 fL (80-100); Mean Platelet Volume 10.5 fL (9.1-12.4); NEUTROPHILS ABSOLUTE AUTO 16.26 K/mm3 (1.96-9.15); NEUTROPHILS PERCENT AUTO 92 % (41-73); Platelet Count 264 K/mm3 (150-400); RDW Coefficient Variation 12.9 % (11.7-14.2); RDW Standard Deviation 42.6 fL (35.1-46.3); Red Blood Cell Count 4.14 M/mm3 (4.30-5.90); White Blood Cell Count 17.75 K/mm3 (4.00-11.30)
[2019-09-02 03:49] LABS: Albumin, Blood 2.9 g/dL (3.4-5.0); Anion Gap 6 mmol/L (6-16); Blood Urea Nitrogen 16 mg/dL (8-24); Bun/Creatinine Ratio 25.2 (12.0-20.0); CO2, Blood 30 mmol/L (21-32); Calcium, Blood 8.7 mg/dL (8.5-10.1); Chloride, Blood 98 mmol/L (98-108); Creatinine, Blood 0.64 mg/dL (0.60-1.20); Glomerular Filtration Rate >60 (60-); Glucose, Blood 157 mg/dL (70-99); Phosphorus, Blood 2.9 mg/dL (2.5-4.9); Potassium, Blood 3.4 mmol/L (3.5-5.5); Sodium, Blood 134 mmol/L (136-145)
--- NOTE | 2019-09-02 05:00 | NUR ---
PATIENT WAKES WITH VERBAL STIMULI. HE HAS NOT HAD ANY FURTHER NEED FOR PRN UND'S FOR THE REMAINDER OF THE SHIFT. HE IS USING HIS FLUTTER VALVE WHILE HE IS AWAKE AND DURING CARE. PATIENT HAS NOT USED THE CALL LIGHT THIS SHIFT. IT IS WITHIN REACH. NO ACUTE CHANGES.
--- NOTE | 2019-09-02 18:39 | NUR ---
SHIFT NOTE PT HAS BEEN CHANGED TO MEDICAL STATUS WITHOUT TELE. PT A/O X4, DENIES SOB OR CP. PT TALKING IN FULL SENTENCES. PT HAS BEEN INDEPENDANT IN ROOM T/O THE DAY. PT HAS BEEN UP TO BEDSIDE CHAIR MOST OF THE DAY. VSS T/O THE SHIFT
--- NOTE | 2019-09-03 05:46 | NUR ---
SHIFT SUMMARY PT MEDICAL NO TELE STATUS. A&O X4. VSS. INDEPENDENT IN ROOM. PT REPORS FEELING BETTER, DENIES FURTHER FLU-LIKE SYMPTOMS. SPO2 > 92% ON RA. BLE EDEMA NOTED. WILL CONTINUE TO MONITOR AND PROVIDE CARE UNTIL REPORT OFF TO DAY SHIFT RN.
[2019-09-03 07:04] LABS: BASOPHILS ABSOLUTE AUTO 0.04 K/mm3 (0.00-0.23); BASOPHILS PERCENT AUTO 0 % (0-2); EOSINOPHILS ABSOLUTE AUTO 0.03 K/mm3 (0.00-0.68); EOSINOPHILS PERCENT AUTO 0 % (0-6); Hematocrit 40.8 % (37.0-53.0); Hemoglobin 13.6 g/dL (13.5-17.5); IMMATURE GRAN ABSOLUTE AUTO 0.33 K/mm3 (0.00-0.10); IMMATURE GRAN PERCENT AUTO 2 % (0-1); LYMPHOCYTES ABSOLUTE AUTO 0.99 K/mm3 (0.84-5.20); LYMPHOCYTES PERCENT AUTO 7 % (21-46); MONOCYTES ABSOLUTE AUTO 0.76 K/mm3 (0.16-1.47); MONOCYTES PERCENT AUTO 6 % (4-13); Mean Corpuscular HGB 29.9 pg (26.0-34.0); Mean Corpuscular HGB Conc 33.3 g/dL (31.5-36.5); Mean Corpuscular Volume 90 fL (80-100); Mean Platelet Volume 10.3 fL (9.1-12.4); NEUTROPHILS ABSOLUTE AUTO 11.45 K/mm3 (1.96-9.15); NEUTROPHILS PERCENT AUTO 84 % (41-73); Platelet Count 289 K/mm3 (150-400); RDW Coefficient Variation 12.9 % (11.7-14.2); RDW Standard Deviation 42.3 fL (35.1-46.3); Red Blood Cell Count 4.55 M/mm3 (4.30-5.90)
[2019-09-03 07:26] LABS: Albumin, Blood 3.2 g/dL (3.4-5.0); Anion Gap 8 mmol/L (6-16); Blood Urea Nitrogen 17 mg/dL (8-24); Bun/Creatinine Ratio 28.1 (12.0-20.0); CO2, Blood 30 mmol/L (21-32); Calcium, Blood 8.7 mg/dL (8.5-10.1); Chloride, Blood 99 mmol/L (98-108); Creatinine, Blood 0.61 mg/dL (0.60-1.20); Glomerular Filtration Rate >60 (60-); Glucose, Blood 146 mg/dL (70-99); Potassium, Blood 3.7 mmol/L (3.5-5.5); Sodium, Blood 137 mmol/L (136-145); Vancomycin, Trough 16.2 ug/mL (5.0-10.0)
--- NOTE | 2019-09-03 15:15 | NUR ---
TRANSFER OF CARE REPORT CALLED TO BANDAR PEARL ON MEDICAL. PT TO TRANSFER TO ROOM 310. ALL BELONGINGS GATHERED AND TRANSPORTED WITH PT. PT ESCORTED UPSTAIRS BY ALEM ALVAREZ.
--- NOTE | 2019-09-03 15:41 | NUR ---
Assumed Care Pt transferred from PCU 4 to MED 310 via w/c. Pt independent, settled to room, call light near, and bed in lowest position. Denies needs at this time. Will continue to monitor.
--- NOTE | 2019-09-04 04:11 | NUR ---
SHIFT SUMMARY: 73 Y/O MALE RESTED COMFORTABLY ENTIRE SHIFT WITH NO C/O PAIN OR NAUSEA; LUNG SOUNDS ARE DIMINISHED THROUGHOUT, NO COUGH NOTED; ALERT AND ORIENTED X 4; EAGER TO RETURN HOME POSSIBLY TODAY; BED LOW POSITION WITH CALL LIGHT AT SIDE.
[2019-09-04 05:45] LABS: BASOPHILS ABSOLUTE AUTO 0.02 K/mm3 (0.00-0.23); BASOPHILS PERCENT AUTO 0 % (0-2); EOSINOPHILS PERCENT AUTO 0 % (0-6); Hematocrit 40.9 % (37.0-53.0); Hemoglobin 13.6 g/dL (13.5-17.5); IMMATURE GRAN ABSOLUTE AUTO 0.18 K/mm3 (0.00-0.10); IMMATURE GRAN PERCENT AUTO 2 % (0-1); LYMPHOCYTES ABSOLUTE AUTO 0.73 K/mm3 (0.84-5.20); LYMPHOCYTES PERCENT AUTO 8 % (21-46); MONOCYTES ABSOLUTE AUTO 0.46 K/mm3 (0.16-1.47); MONOCYTES PERCENT AUTO 5 % (4-13); Mean Corpuscular HGB 29.6 pg (26.0-34.0); Mean Corpuscular HGB Conc 33.3 g/dL (31.5-36.5); Mean Corpuscular Volume 89 fL (80-100); Mean Platelet Volume 10.6 fL (9.1-12.4); NEUTROPHILS ABSOLUTE AUTO 7.66 K/mm3 (1.96-9.15); NEUTROPHILS PERCENT AUTO 85 % (41-73); Platelet Count 252 K/mm3 (150-400); RDW Coefficient Variation 12.7 % (11.7-14.2); RDW Standard Deviation 41.4 fL (35.1-46.3); Red Blood Cell Count 4.59 M/mm3 (4.30-5.90); White Blood Cell Count 9.05 K/mm3 (4.00-11.30)
[2019-09-04 06:14] LABS: Albumin, Blood 3.1 g/dL (3.4-5.0); Anion Gap 8 mmol/L (6-16); Blood Urea Nitrogen 20 mg/dL (8-24); Bun/Creatinine Ratio 33.5 (12.0-20.0); CO2, Blood 28 mmol/L (21-32); Calcium, Blood 8.8 mg/dL (8.5-10.1); Chloride, Blood 98 mmol/L (98-108); Glomerular Filtration Rate >60 (60-); Glucose, Blood 159 mg/dL (70-99); Phosphorus, Blood 4.1 mg/dL (2.5-4.9); Potassium, Blood 3.7 mmol/L (3.5-5.5); Sodium, Blood 134 mmol/L (136-145)
[2019-09-04] MEDS ORDERED: FOLIC ACID PO (12:09)
[2019-09-04] MEDS ORDERED: [UNRECOGNIZED DRUG - OTHER] PO (12:09)
[2019-09-04] MEDS ORDERED: CEPACOL SORE T1 EACH MM (12:10)
[2019-09-04] MEDS ORDERED: CARV6.25 PO (12:11)
[2019-09-04] MEDS ORDERED: Culturelle1 CAP PO (12:12)
[2019-09-04] MEDS ORDERED: LEVO750 PO (12:13)
[2019-09-04] MEDS ORDERED: Vsl#3 Capsule1 EACH PO (12:13)
[2019-09-04] MEDS ORDERED: Prednisone10 MG PO (12:16)
--- NOTE | 2019-09-04 13:30 | NUR ---
PT DISCHARGED AT 1325 WITH ALL PERSONAL BELONGINGS. PT REPORTS BREATHING MUCH BETTER TODAY AND FELT LIKE HE COULD GO HOME. ALL PAPERS REVIEWED AND EDCATIONAL MATERIALS SENT WITH PT. IV REMOVED AND INTACT. MEDICATION FAXED TO [facility]. NO DISTRESS NOTED.
== END 2019-09-04 13:26 | disposition home or self-care (01) | DRG 871 ==
LOC: ER 21:32 → MEDS 21:33 → ICUW 08-30 15:46 → MEDS 08-30 15:50 → ICUW 08-31 08:04 → PCU 09-01 16:43 → MEDS 09-03 15:31
PROVIDERS: Family Medicine; Pharmacist; Physician Assistant; ADMIT Internal Medicine
PROC: 5A09357 Assistance with Respiratory Ventilation, Less than 24 Consecutive Hours, Continuous Positive Airway Pressure (ICD-10-PCS; principal; 2019-08-31)
DX: A41.89 Other specified sepsis (principal); J18.9 Pneumonia, unspecified organism; J96.01 Acute respiratory failure with hypoxia; I50.33 Acute on chronic diastolic (congestive) heart failure; J45.901 Unspecified asthma with (acute) exacerbation; E87.1 Hypo-osmolality and hyponatremia; J10.1 Influenza due to other identified influenza virus with other respiratory manifestations; I48.0 Paroxysmal atrial fibrillation; I35.0 Nonrheumatic aortic (valve) stenosis; K21.9 Gastro-esophageal reflux disease without esophagitis; R65.20 Severe sepsis without septic shock; E87.6 Hypokalemia; I11.0 Hypertensive heart disease with heart failure; M10.9 Gout, unspecified; D63.8 Anemia in other chronic diseases classified elsewhere; E83.39 Other disorders of phosphorus metabolism; Z87.891 Personal history of nicotine dependence
CPT/HCPCS: 0099U; 36415; 71045; 71046; 80048; 80053; 80069; 80202; 83605; 83880; 84484; 85025; 87040; 93005; 93010; 93971; 94640; 94644; 94660; 94760; 94762; 96365; 96375; 97116; 97162; 97166; 97530; 97535; 99285-25; A9270; J0360; J1940; J1956; J2405; J2930; J3370; J3475; J7030; J7050

== ENCOUNTER 2019-12-06 20:20 | Emergency (ER) | payer MEDICARE, BC ==
[~2019-12-06] VITALS: Ht 170.2 cm; Wt 86.2 kg
[~2019-12-06 20:20] MED LIST changes: +CARV6.25 PO; +CEPACOL SORE T1 EACH MM; +Culturelle1 CAP PO; +FOLIC ACID PO; +LEVO750 PO; +PRED20; +Prednisone10 MG PO; +Vsl#3 Capsule1 EACH PO; +[UNRECOGNIZED DRUG - OTHER] PO
[2019-12-06 21:29] LABS: BASOPHILS ABSOLUTE AUTO 0.06 K/mm3 (0.00-0.23); BASOPHILS PERCENT AUTO 1 % (0-2); EOSINOPHILS ABSOLUTE AUTO 0.06 K/mm3 (0.00-0.68); EOSINOPHILS PERCENT AUTO 1 % (0-6); Hematocrit 37.2 % (37.0-53.0); Hemoglobin 12.5 g/dL (13.5-17.5); IMMATURE GRAN ABSOLUTE AUTO 0.03 K/mm3 (0.00-0.10); IMMATURE GRAN PERCENT AUTO 0 % (0-1); LYMPHOCYTES ABSOLUTE AUTO 1.82 K/mm3 (0.84-5.20); LYMPHOCYTES PERCENT AUTO 25 % (21-46); MONOCYTES ABSOLUTE AUTO 0.73 K/mm3 (0.16-1.47); MONOCYTES PERCENT AUTO 10 % (4-13); Mean Corpuscular HGB 30.9 pg (26.0-34.0); Mean Corpuscular HGB Conc 33.6 g/dL (31.5-36.5); Mean Corpuscular Volume 92 fL (80-100); Mean Platelet Volume 10.1 fL (9.1-12.4); NEUTROPHILS ABSOLUTE AUTO 4.72 K/mm3 (1.96-9.15); NEUTROPHILS PERCENT AUTO 64 % (41-73); Platelet Count 279 K/mm3 (150-400); RDW Coefficient Variation 13.2 % (11.7-14.2); RDW Standard Deviation 45.5 fL (35.1-46.3); Red Blood Cell Count 4.04 M/mm3 (4.30-5.90); White Blood Cell Count 7.42 K/mm3 (4.00-11.30)
[2019-12-06 21:49] LABS: Alanine Aminotransfer (ALT/SGP 53 U/L (12-78); Albumin/Globulin Ratio 1.4 (0.8-1.8); Alk Phos 70 U/L (50-136); Anion Gap 9 mmol/L (6-16); Aspartate Aminotrans (AST/SGOT 55 U/L (12-37); Bilirubin, Total 0.3 mg/dL (0.1-1.0); Blood Urea Nitrogen 11 mg/dL (8-24); CO2, Blood 25 mmol/L (21-32); Calcium, Blood 8.3 mg/dL (8.5-10.1); Chloride, Blood 96 mmol/L (98-108); Creatinine, Blood 0.65 mg/dL (0.60-1.20); Globulin, Blood 2.9 g/dL (2.2-4.0); Glomerular Filtration Rate >60 (60-); Glucose, Blood 100 mg/dL (70-99); Potassium, Blood 3.8 mmol/L (3.5-5.5); Sodium, Blood 130 mmol/L (136-145); Total Protein, Blood 6.9 g/dL (6.4-8.2); Troponin I <0.015 ng/mL (0.000-0.040)
[2019-12-06] MEDS ORDERED: Keflex500 MG PO (22:18)
== END 2019-12-06 23:05 | disposition home or self-care (01) ==
LOC: ER 20:20
PROVIDERS: Physician Assistant
DX: S06.9X9A Unspecified intracranial injury with loss of consciousness of unspecified duration, initial encounter (principal); S01.21XA Laceration without foreign body of nose, initial encounter; S90.411A Abrasion, right great toe, initial encounter; I48.91 Unspecified atrial fibrillation; J45.909 Unspecified asthma, uncomplicated; M10.9 Gout, unspecified; I10 Essential (primary) hypertension; Z88.1 Allergy status to other antibiotic agents; Z88.8 Allergy status to other drugs, medicaments and biological substances; Z79.899 Other long term (current) drug therapy; W19.XXXA Unspecified fall, initial encounter
CPT/HCPCS: 70450; 71046; 80053; 84484; 85025; 90471; 90714; 93005; 93010; 99285-25; A9270-GY

== ENCOUNTER 2020-05-15 09:02 | Inpatient (IN) | payer MEDICARE, BC ==
[~2020-05-15] VITALS: Ht 170.2 cm; Wt 86.3 kg
[~2020-05-15 09:02] MED LIST changes: +Keflex500 MG PO
[2020-05-15] MEDS ORDERED: COMBIVENT RESPIM4 G1 INH ×2 (11:40)
[2020-05-15] MEDS ORDERED: LEVETIRACETAM500 M3 PO ×2 (11:40)
[2020-05-15] MEDS ORDERED: SYMBICORT 16010.2 GM INH ×2 (11:43)
[2020-05-15] MEDS ORDERED: AMLODIPINE BESY10 MG PO ×2 (11:43)
[2020-05-15] MEDS ORDERED: Bystolic20 MG PO ×2 (11:43)
--- NOTE | 2020-05-16 04:19 | NUR ---
SHIFT SUMMARY PT RESTING WELL THIS AM. AAOX4. NPO. PT REPORTING INTERMITTENT SHARP ABD PAIN DISCOMFORT CONTROLLED WITH 0.5MG IV DILAUDID Q3-4H. NO NAUSEA/EMESIS THIS SHIFT. PT UP TO BATHROOM WITH LARGE AMOUNTS OF FLATUS, NO BM. PT RESTING AT THIS TIME WITH CALL LIGHT IN REACH.
[2020-05-16 04:43] LABS: BASOPHILS ABSOLUTE AUTO 0.05 K/mm3 (0.00-0.23); BASOPHILS PERCENT AUTO 0 % (0-2); EOSINOPHILS ABSOLUTE AUTO 0.02 K/mm3 (0.00-0.68); EOSINOPHILS PERCENT AUTO 0 % (0-6); Hematocrit 33.8 % (37.0-53.0); Hemoglobin 11.1 g/dL (13.5-17.5); IMMATURE GRAN ABSOLUTE AUTO 0.11 K/mm3 (0.00-0.10); IMMATURE GRAN PERCENT AUTO 1 % (0-1); LYMPHOCYTES ABSOLUTE AUTO 1.01 K/mm3 (0.84-5.20); LYMPHOCYTES PERCENT AUTO 6 % (21-46); MONOCYTES ABSOLUTE AUTO 1.76 K/mm3 (0.16-1.47); MONOCYTES PERCENT AUTO 10 % (4-13); Mean Corpuscular HGB 31.4 pg (26.0-34.0); Mean Corpuscular HGB Conc 32.8 g/dL (31.5-36.5); Mean Corpuscular Volume 96 fL (80-100); Mean Platelet Volume 10.2 fL (9.1-12.4); NEUTROPHILS PERCENT AUTO 83 % (41-73); Platelet Count 249 K/mm3 (150-400); RDW Standard Deviation 45.7 fL (35.1-46.3); Red Blood Cell Count 3.53 M/mm3 (4.30-5.90); White Blood Cell Count 17.75 K/mm3 (4.00-11.30)
[2020-05-16 05:00] LABS: Alanine Aminotransfer (ALT/SGP 16 U/L (12-78); Albumin, Blood 3.1 g/dL (3.4-5.0); Alk Phos 60 U/L (50-136); Anion Gap 8 mmol/L (6-16); Aspartate Aminotrans (AST/SGOT 14 U/L (12-37); Bilirubin, Total 1.3 mg/dL (0.1-1.0); Blood Urea Nitrogen 12 mg/dL (8-24); Bun/Creatinine Ratio 12.1 (12.0-20.0); CO2, Blood 27 mmol/L (21-32); Calcium, Blood 8.6 mg/dL (8.5-10.1); Chloride, Blood 98 mmol/L (98-108); Creatinine, Blood 0.99 mg/dL (0.60-1.20); Globulin, Blood 3.1 g/dL (2.2-4.0); Glomerular Filtration Rate >60 (60-); Glucose, Blood 100 mg/dL (70-99); Magnesium, Blood 1.5 mg/dL (1.6-2.4); Potassium, Blood 3.7 mmol/L (3.5-5.5); Sodium, Blood 133 mmol/L (136-145); Total Protein, Blood 6.2 g/dL (6.4-8.2)
--- NOTE | 2020-05-16 16:02 | NUR ---
SHIFT SUMMARY PT HAS DONE WELL TODAY W/ SIPS & CHIPS. AMBULATED HALLWAY ONCE. PASSING MINIMAL GAS. ABD MORE DISTENDED THAN YEST. IVF & ANTIBIOTICS SCHEDULED. PLEASANT.
--- NOTE | 2020-05-17 02:43 | NUR ---
PT REPORTS FEELING FREEZING COLD AND IS FOUND SHIVERING IN BED. NORMAL TEMP OF 98.6. EXPIRATORY WHEEZING NOTED IN ALL LOBES. CALL PLACED TO RESPIRATORY THERAPIST FOR BREATHING TX. PT ALSO REPORTS ZOFRAN NOT EFFECTIVE FOR NAUSEA. CALL PLACED TO HOSPITALIST TO OBTAIN NEW ORDERS FOR NAUSEA.
--- NOTE | 2020-05-17 02:49 | NUR ---
NEW ORDER FOR REGLAN AND GI COCKTAIL
--- NOTE | 2020-05-17 03:59 | NUR ---
PT RECIEVED BREATHING TX AT APPROX 0250. PT STILL WHEEZING THROUGHOUT. PT PLACED ON 4LO2 WITH O2 AT 90%. GIVEN TYLENOL FOR TEMP OF 100. TACHYCARDIC WITH HR AVERAGING 108 PER CORE EXTRUDER. PT HYPOTENSIVE WITH MOST CURRENT BP OF 87/52. CALL PLACED TO HOSPITALIST. NEW ORDER FOR BNP, LACTIC ACID AND 500CC BOLUS OF NS. LAB NOTIFIED OF NEW ORDERS.
[2020-05-17 04:12] LABS: BASOPHILS ABSOLUTE AUTO 0.02 K/mm3 (0.00-0.23); BASOPHILS PERCENT AUTO 0 % (0-2); EOSINOPHILS ABSOLUTE AUTO 0.03 K/mm3 (0.00-0.68); EOSINOPHILS PERCENT AUTO 0 % (0-6); Hematocrit 34.7 % (37.0-53.0); Hemoglobin 11.3 g/dL (13.5-17.5); IMMATURE GRAN ABSOLUTE AUTO 0.06 K/mm3 (0.00-0.10); IMMATURE GRAN PERCENT AUTO 0 % (0-1); LYMPHOCYTES ABSOLUTE AUTO 0.47 K/mm3 (0.84-5.20); LYMPHOCYTES PERCENT AUTO 3 % (21-46); MONOCYTES PERCENT AUTO 5 % (4-13); Mean Corpuscular HGB 31.2 pg (26.0-34.0); Mean Corpuscular HGB Conc 32.6 g/dL (31.5-36.5); Mean Corpuscular Volume 96 fL (80-100); Mean Platelet Volume 10.1 fL (9.1-12.4); NEUTROPHILS PERCENT AUTO 91 % (41-73); Platelet Count 333 K/mm3 (150-400); RDW Coefficient Variation 12.6 % (11.7-14.2); RDW Standard Deviation 44.8 fL (35.1-46.3); Red Blood Cell Count 3.62 M/mm3 (4.30-5.90); White Blood Cell Count 15.98 K/mm3 (4.00-11.30)
[2020-05-17 04:36] LABS: Alanine Aminotransfer (ALT/SGP 11 U/L (12-78); Albumin, Blood 2.5 g/dL (3.4-5.0); Albumin/Globulin Ratio 0.8 (0.8-1.8); Alk Phos 59 U/L (50-136); Anion Gap 13 mmol/L (6-16); Aspartate Aminotrans (AST/SGOT 11 U/L (12-37); Bilirubin, Total 1.4 mg/dL (0.1-1.0); Blood Urea Nitrogen 20 mg/dL (8-24); Bun/Creatinine Ratio 18.7 (12.0-20.0); CO2, Blood 23 mmol/L (21-32); Calcium, Blood 8.6 mg/dL (8.5-10.1); Chloride, Blood 96 mmol/L (98-108); Creatinine, Blood 1.07 mg/dL (0.60-1.20); Globulin, Blood 3.3 g/dL (2.2-4.0); Glomerular Filtration Rate >60 (60-); Glucose, Blood 123 mg/dL (70-99); Potassium, Blood 3.8 mmol/L (3.5-5.5); Sodium, Blood 132 mmol/L (136-145); Total Protein, Blood 5.8 g/dL (6.4-8.2)
--- NOTE | 2020-05-17 06:31 | NUR ---
PT RESPONDED WELL TO 500CC BOLUS. MOST CURRENT BP 117/61. HR 67. RESPIRATIONS WNL AT 16. TEMP REMAINS AT 99. PT 98% ON 3LO2 VIA NC. PT ALERT AND INTERACTIVE WITH STAFF AND NOT DROWSY. PT ABLE TO AMBULATE TO BATHROOM THIS MORNING AND HAD ONE UNMEASURED VOID.
[2020-05-17 11:43] LABS: International Normalized Ratio 1.13
--- NOTE | 2020-05-18 00:50 | NUR ---
REPORT GIVEN TO Carolyn CESPEDES RN AND Beau CASTANO RN.
--- NOTE | 2020-05-18 01:15 | NUR ---
ASSUMED CARE AT THIS TIME, PT CURRENTLY STABLE, RESTING IN ROOM. REPORT RECEIVED FROM ARVIN PORTILLO.
[2020-05-18 04:02] LABS: BASOPHILS ABSOLUTE AUTO 0.04 K/mm3 (0.00-0.23); BASOPHILS PERCENT AUTO 0 % (0-2); EOSINOPHILS ABSOLUTE AUTO 0.28 K/mm3 (0.00-0.68); EOSINOPHILS PERCENT AUTO 2 % (0-6); Hematocrit 30.1 % (37.0-53.0); Hemoglobin 9.9 g/dL (13.5-17.5); IMMATURE GRAN ABSOLUTE AUTO 0.09 K/mm3 (0.00-0.10); IMMATURE GRAN PERCENT AUTO 1 % (0-1); LYMPHOCYTES ABSOLUTE AUTO 1.32 K/mm3 (0.84-5.20); LYMPHOCYTES PERCENT AUTO 9 % (21-46); MONOCYTES ABSOLUTE AUTO 0.94 K/mm3 (0.16-1.47); MONOCYTES PERCENT AUTO 6 % (4-13); Mean Corpuscular HGB 30.9 pg (26.0-34.0); Mean Corpuscular HGB Conc 32.9 g/dL (31.5-36.5); Mean Corpuscular Volume 94 fL (80-100); Mean Platelet Volume 9.6 fL (9.1-12.4); NEUTROPHILS ABSOLUTE AUTO 12.46 K/mm3 (1.96-9.15); NEUTROPHILS PERCENT AUTO 82 % (41-73); Platelet Count 276 K/mm3 (150-400); RDW Coefficient Variation 12.7 % (11.7-14.2); White Blood Cell Count 15.13 K/mm3 (4.00-11.30)
[2020-05-18 04:19] LABS: Alanine Aminotransfer (ALT/SGP 15 U/L (12-78); Albumin, Blood 2.4 g/dL (3.4-5.0); Albumin/Globulin Ratio 0.8 (0.8-1.8); Alk Phos 46 U/L (50-136); Anion Gap 8 mmol/L (6-16); Aspartate Aminotrans (AST/SGOT 19 U/L (12-37); Bilirubin, Total 0.7 mg/dL (0.1-1.0); Blood Urea Nitrogen 15 mg/dL (8-24); Bun/Creatinine Ratio 18.7 (12.0-20.0); CO2, Blood 27 mmol/L (21-32); Calcium, Blood 8.3 mg/dL (8.5-10.1); Chloride, Blood 100 mmol/L (98-108); Globulin, Blood 3.2 g/dL (2.2-4.0); Glomerular Filtration Rate >60 (60-); Glucose, Blood 86 mg/dL (70-99); Potassium, Blood 3.5 mmol/L (3.5-5.5); Sodium, Blood 135 mmol/L (136-145); Total Protein, Blood 5.6 g/dL (6.4-8.2)
--- NOTE | 2020-05-18 04:39 | NUR ---
SHIFT SUMMARY APPENDICITIES, A/O, VSS, NPO, STABLE AFIB, PAIN CONTROLLED PER EMAR, VOIDING WELL. CALL LIGHT IN REACH, WILL REPORT TO ONCOMING DAY RN.
--- NOTE | 2020-05-18 13:26 | NUR ---
CLEAR LIQ DIET I BROUGHT PT 2 JOEY, ICE WATER AND APPLE JUICE. PT IS TOLERATING HIS DIET WELL. HE DENIES NAUSEA AND VOMITING.
--- NOTE | 2020-05-18 18:52 | NUR ---
SHIFT SUMMARY AOX4 W/ VSS. PT INDEPENDENT. PT REPORTS LOOSE GREEN DIARRHEA THIS MORNING. GI PANEL PER MD ORDER TO R/0 C.DIFF. NO SPECIMEN COLLECTED YET. PT IS ON CLEAR LIQ DIET, TOLERATED LUNCH AND DINNER. DENIES NAUSEA, VOMITING AND FLATTUS. HE IS ON TELE, AFIB 90. TOOK L HAND IV THIS MORNING BECAUSE IT WASN'T PATENT. POWERGLIDE PLACED AT HEMANTH. PAIN IS WELL-TOLERATED. PT AMBULATED INDEPENDENTLY FROM BED TO NURSE STATION IN THE AFTERNOON, TOLERATED IT WELL. HE IS IV ABX, 2ND LR RUNNING AT THE MOMENT.
[2020-05-19 05:36] LABS: BASOPHILS ABSOLUTE AUTO 0.06 K/mm3 (0.00-0.23); BASOPHILS PERCENT AUTO 1 % (0-2); EOSINOPHILS ABSOLUTE AUTO 0.35 K/mm3 (0.00-0.68); EOSINOPHILS PERCENT AUTO 3 % (0-6); Hematocrit 35.4 % (37.0-53.0); Hemoglobin 11.3 g/dL (13.5-17.5); IMMATURE GRAN ABSOLUTE AUTO 0.09 K/mm3 (0.00-0.10); IMMATURE GRAN PERCENT AUTO 1 % (0-1); LYMPHOCYTES ABSOLUTE AUTO 1.27 K/mm3 (0.84-5.20); LYMPHOCYTES PERCENT AUTO 11 % (21-46); MONOCYTES PERCENT AUTO 9 % (4-13); Mean Corpuscular HGB 30.5 pg (26.0-34.0); Mean Corpuscular HGB Conc 31.9 g/dL (31.5-36.5); Mean Corpuscular Volume 96 fL (80-100); Mean Platelet Volume 9.6 fL (9.1-12.4); NEUTROPHILS ABSOLUTE AUTO 8.82 K/mm3 (1.96-9.15); NEUTROPHILS PERCENT AUTO 76 % (41-73); Platelet Count 332 K/mm3 (150-400); RDW Coefficient Variation 12.7 % (11.7-14.2); RDW Standard Deviation 45.1 fL (35.1-46.3); White Blood Cell Count 11.59 K/mm3 (4.00-11.30)
--- NOTE | 2020-05-19 05:48 | NUR ---
SHIFT SUMMARY RUPTURED APENDICITIS, A/O X4, VSS, PAIN WELL CONTROLLED PER EMAR, DENIES N/V, TOLERATING CLEAR PO, VOIDING WELL, WAITING FOR BM TO COLLECT SAMPLE TO R/O C DIFF. POWERGLIDE FLUSHES BUT DOESN'T PULL, HEMANTH SIGNIFICANTLY MORE FIRM THAN LEFT, STOPPED INFUSION AND WILL NOTIFY PICC NURSE TO REMOVE AND EVALUATE TO REPLACE IN ANOTHER LOCATION. WILL CONTINUE TO MONITOR AND REPORT TO ONCOMING DAY RN.
[2020-05-19 05:51] LABS: Alanine Aminotransfer (ALT/SGP 14 U/L (12-78); Albumin, Blood 2.7 g/dL (3.4-5.0); Albumin/Globulin Ratio 0.8 (0.8-1.8); Alk Phos 53 U/L (50-136); Anion Gap 5 mmol/L (6-16); Aspartate Aminotrans (AST/SGOT 20 U/L (12-37); Bilirubin, Total 0.6 mg/dL (0.1-1.0); Blood Urea Nitrogen 8 mg/dL (8-24); Bun/Creatinine Ratio 11.6 (12.0-20.0); CO2, Blood 30 mmol/L (21-32); Calcium, Blood 8.6 mg/dL (8.5-10.1); Chloride, Blood 99 mmol/L (98-108); Creatinine, Blood 0.69 mg/dL (0.60-1.20); Globulin, Blood 3.5 g/dL (2.2-4.0); Glomerular Filtration Rate >60 (60-); Glucose, Blood 88 mg/dL (70-99); Potassium, Blood 3.3 mmol/L (3.5-5.5); Sodium, Blood 134 mmol/L (136-145); Total Protein, Blood 6.2 g/dL (6.4-8.2)
[2020-05-19 10:08] LABS: Adenovirus F 40/41 Not Detected (NOT DETECT); Astrovirus Not Detected (NOT DETECT); Campylobacter Sp Not Detected (NOT DETECT); Cryptosporidium Not Detected (NOT DETECT); Cyclospora Cayetanensis Not Detected (NOT DETECT); E. Coli O157 Not Detected (NOT DETECT); Entamoeba Histolytica Not Detected (NOT DETECT); Enteroaggregative E. coli-EAEC Not Detected (NOT DETECT); Enteropathogenic E. coli-EPEC Not Detected (NOT DETECT); Enterotoxigenic E. coli-ETEC Not Detected (NOT DETECT); Giardia Lamblia Not Detected (NOT DETECT); Norovirus GI/GII Not Detected (NOT DETECT); Plesiomonas Shigelloides Not Detected (NOT DETECT); Rotavirus A Not Detected (NOT DETECT); Salmonella Sp Not Detected (NOT DETECT); Sapovirus Not Detected (NOT DETECT); Shiga Toxin-prod E. coli-STEC Not Detected (NOT DETECT); Shigella/Enteroin E. coli-EIEC Not Detected (NOT DETECT); Vibrio Cholerae Not Detected (NOT DETECT); Vibrio Sp Not Detected (NOT DETECT); Yersinia Enterocolitica Not Detected (NOT DETECT)
--- NOTE | 2020-05-19 17:12 | NUR ---
SHIFT SUMMARY AOX4 AFEBRILE. PT C/O HEMANTH PAIN DUE TO INFILTRATION OF POWERGLIDE-IV. HEMANTH IS SWOLLEN, LEAKING, AND PAINFUL. PT HEMANTH SKIN AROUND IV SITE IS RED, TENDER, IRRITATED AND HAD SOME MILD SKIN TEAR. POWERGLIDE IV WAS REMOVED. PT'S HEMANTH WAS ELEVATED AND APPLIED WARM BLANKET. PT FELT RELIEF. PT ALSO REPORTS 1 SMALL LOOSE GREEN LIQUID BOWEL THIS MORNING. IT WAS SENT TO LAB TO RULE OUT C.DIFF. LAB RESULT CAME BACK NEGATIVE FOR C.DIFF. ISOLATION PRECAUTION WAS REMOVED. HE DENIES PASSING FLATUS. CLEAR LIQUID DIET WAS CHANGED TO SOFT BITE SIZE DIET. PT TOLERATES HIS MEALS DENIES NAUSEA AND VOMITING. PT HAD BREATHING TREATMENT AFTER LUNCH. PLAN TO KEEP PATIENT FOR [address] JEAN.
--- NOTE | 2020-05-20 04:52 | NUR ---
SHIFT SUMMARY: DERRELL IS A&OX4. VSS, NO ACUTE EVENTS OVERNIGHT. HE IS INDEPEDNENT IN THE ROOM AND HALLWAYS. HE IS TOLERATING A SOFT DIET WELL. HE DID REQUIRE TWO NORCO FOR PAIN IN THE RLQ, WHICH HE REPORTED EFFECTIVE. HE REPORTS RESTING INTERMITTENTLY THIS SHIFT. HE DENIES DIFFICULTY URINATING AND STATES THAT HE HAS HAD A SMALL BM AND PASSED A SMALL AMOUNT OF GAS. PT IS LYING IN BED WITH HIS CALL LIGHT IN REACH. WILL REPORT TO DAY SHIFT RN.
[2020-05-20 05:08] LABS: BASOPHILS ABSOLUTE AUTO 0.05 K/mm3 (0.00-0.23); BASOPHILS PERCENT AUTO 1 % (0-2); EOSINOPHILS PERCENT AUTO 2 % (0-6); Hematocrit 33.4 % (37.0-53.0); Hemoglobin 10.9 g/dL (13.5-17.5); IMMATURE GRAN ABSOLUTE AUTO 0.11 K/mm3 (0.00-0.10); IMMATURE GRAN PERCENT AUTO 1 % (0-1); LYMPHOCYTES ABSOLUTE AUTO 1.16 K/mm3 (0.84-5.20); LYMPHOCYTES PERCENT AUTO 12 % (21-46); MONOCYTES ABSOLUTE AUTO 0.79 K/mm3 (0.16-1.47); MONOCYTES PERCENT AUTO 8 % (4-13); Mean Corpuscular HGB 30.8 pg (26.0-34.0); Mean Corpuscular HGB Conc 32.6 g/dL (31.5-36.5); Mean Corpuscular Volume 94 fL (80-100); Mean Platelet Volume 9.5 fL (9.1-12.4); NEUTROPHILS ABSOLUTE AUTO 7.08 K/mm3 (1.96-9.15); NEUTROPHILS PERCENT AUTO 75 % (41-73); Platelet Count 316 K/mm3 (150-400); RDW Coefficient Variation 12.8 % (11.7-14.2); RDW Standard Deviation 44.1 fL (35.1-46.3); Red Blood Cell Count 3.54 M/mm3 (4.30-5.90); White Blood Cell Count 9.39 K/mm3 (4.00-11.30)
[2020-05-20 05:29] LABS: Alanine Aminotransfer (ALT/SGP 17 U/L (12-78); Albumin, Blood 2.8 g/dL (3.4-5.0); Albumin/Globulin Ratio 0.8 (0.8-1.8); Alk Phos 54 U/L (50-136); Anion Gap 6 mmol/L (6-16); Aspartate Aminotrans (AST/SGOT 25 U/L (12-37); Bilirubin, Total 0.6 mg/dL (0.1-1.0); Blood Urea Nitrogen 6 mg/dL (8-24); Bun/Creatinine Ratio 8.7 (12.0-20.0); CO2, Blood 28 mmol/L (21-32); Calcium, Blood 8.8 mg/dL (8.5-10.1); Chloride, Blood 101 mmol/L (98-108); Creatinine, Blood 0.69 mg/dL (0.60-1.20); Globulin, Blood 3.4 g/dL (2.2-4.0); Glomerular Filtration Rate >60 (60-); Glucose, Blood 97 mg/dL (70-99); Potassium, Blood 3.6 mmol/L (3.5-5.5); Sodium, Blood 135 mmol/L (136-145); Total Protein, Blood 6.2 g/dL (6.4-8.2)
[2020-05-20] MEDS ORDERED: AMOCLA875 PO ×2 (17:39)
== END 2020-05-20 18:37 | disposition home or self-care (01) | DRG 871 ==
LOC: ER 09:02 → CT 09:02 → SURS 09:03 → EDSTATUS 09:30 → CT 09:30 → SURS 12:17
PROVIDERS: Family Medicine; ADMIT Surgery
DX: A41.9 Sepsis, unspecified organism (principal); K35.33 Acute appendicitis with perforation, localized peritonitis, and gangrene, with abscess; J18.9 Pneumonia, unspecified organism; K50.914 Crohn's disease, unspecified, with abscess; D63.8 Anemia in other chronic diseases classified elsewhere; E78.5 Hyperlipidemia, unspecified; G62.9 Polyneuropathy, unspecified; I10 Essential (primary) hypertension; J45.40 Moderate persistent asthma, uncomplicated; K21.9 Gastro-esophageal reflux disease without esophagitis; Z79.01 Long term (current) use of anticoagulants; G40.909 Epilepsy, unspecified, not intractable, without status epilepticus; I48.0 Paroxysmal atrial fibrillation
CPT/HCPCS: 0097U; 36415; 71045; 71046; 72193; 74177; 76380; 80053; 83605; 83690; 83735; 83880; 85025; 85610; 86850; 86900; 86901; 87040; 93005; 93010; 94640; 94667; 94760; 96365-59; 96375; 99285-25; A9270; A9270-GY; C1751; J1170; J1650; J2405; J2543; J2765; J3475; J7040; J7050; J7120; Q9967; U0002

== ENCOUNTER 2020-06-27 12:19 | Day surgery (SDC) | payer MEDICARE, BC ==
[~2020-06-27] VITALS: Ht 170.2 cm; Wt 82.2 kg
[~2020-06-27 12:19] MED LIST changes: +AMLODIPINE BESY10 MG PO; +AMOCLA875 PO; +Bystolic20 MG PO; +COMBIVENT RESPIM4 G1 INH; +LEVETIRACETAM500 M3 PO; +SYMBICORT 16010.2 GM INH
--- NOTE | 2020-06-27 13:24 | NUR ---
06/27/20 Silvia4 Shelbie Marie 1 TRY RIGHT HAND VALVE BLEW
== END 2020-06-27 15:08 | disposition home or self-care (01) ==
LOC: ORSCSDS 12:19
PROVIDERS: Student in an Organized Health Care Education/Training Program
PROC: 0DBB8ZX Excision of Ileum, Via Natural or Artificial Opening Endoscopic, Diagnostic (ICD-10-PCS; principal; 2020-06-27 13:45)
PROC: 0DBN8ZX Excision of Sigmoid Colon, Via Natural or Artificial Opening Endoscopic, Diagnostic (ICD-10-PCS; principal; 2020-06-27 13:45)
PROC: 0DBH8ZX Excision of Cecum, Via Natural or Artificial Opening Endoscopic, Diagnostic (ICD-10-PCS; principal; 2020-06-27 13:45)
PROC: 0DBL8ZX Excision of Transverse Colon, Via Natural or Artificial Opening Endoscopic, Diagnostic (ICD-10-PCS; principal; 2020-06-27 13:45)
DX: R10.31 Right lower quadrant pain (principal); K50.90 Crohn's disease, unspecified, without complications; Z86.010 Personal history of colon polyps; D12.3 Benign neoplasm of transverse colon; D12.0 Benign neoplasm of cecum; D12.5 Benign neoplasm of sigmoid colon; K57.30 Diverticulosis of large intestine without perforation or abscess without bleeding; K64.8 Other hemorrhoids; K64.4 Residual hemorrhoidal skin tags; I10 Essential (primary) hypertension; E78.5 Hyperlipidemia, unspecified; J44.9 Chronic obstructive pulmonary disease, unspecified; G47.33 Obstructive sleep apnea (adult) (pediatric); I48.91 Unspecified atrial fibrillation; Z79.01 Long term (current) use of anticoagulants; Z79.899 Other long term (current) drug therapy
CPT/HCPCS: 88305; J2704; J7120